=== PATIENT | female | born 1985 | race Caucasian/White ===

== ENCOUNTER → 2017-10-25 08:08 | Outpatient (CLI) | payer MEDICAID ==
[2011-03-19 05:32] VITALS: BMI 34.3
== END | disposition home or self-care (01) ==
LOC: D.NM 08:00
DX: R10.11 Right upper quadrant pain (principal)

== ENCOUNTER 2017-11-29 07:09 | Day surgery (SDC) | payer MEDICAID ==
[~2017-11-29] VITALS: Ht 152.4 cm; Wt 102.5 kg
--- NOTE | ~2017-11-29 | OP ---
PATIENT NAME: POLINA MONTEIRO MEDICAL RECORD: [id number] :87 LOCATION:D.OPS ADMISSION DATE: SURGEON: TULIO URBINA MD DATE OF OPERATION: 11/29/2017 PREOPERATIVE DIAGNOSES: 1. Biliary dyskinesia. 2. Morbid obesity with BMI of 43. 3. Anxiety disorder. POSTOPERATIVE DIAGNOSES: 1. Biliary dyskinesia. 2. Morbid obesity with BMI of 43. 3. Anxiety disorder. PROCEDURE: Laparoscopic cholecystectomy. SURGEON: Tulio Urbina MD REPORT OF PROCEDURE: The patient's abdomen was prepped and draped in sterile fashion. A cutdown was made on the superior aspect of the umbilicus, 0 Vicryls were placed on the fascia bilaterally and the fascia was incised with 15-blade. I then bluntly entered the peritoneal cavity and placed a 12-mm Dione port. Under direct visualization, a 5-mm trocar was placed in the epigastrium and 2 more 5-mm trocars were placed in the right subcostal region. The gallbladder was grasped and elevated. The cystic artery and cystic duct were dissected free, and these were clipped proximally and distally and ligated in standard fashion. The gallbladder was then taken off the liver bed using electrocautery and placed into the right upper quadrant. Any bleeding from the liver bed was then treated with electrocautery. At this point, the ports and insufflation were then removed, and the gallbladder was taken out through the umbilicus. The umbilical fascia was closed with interrupted 0 Vicryls times 3. Wounds were then irrigated out with normal saline, infused with 10 mL of 0.25% Marcaine with epinephrine. The skin incisions were all closed with subcutaneous 5-0 Monocryl and dressed appropriately. COMPLICATIONS: None. CONDITION: Stable. ANESTHESIA: General endotracheal and local. BLOOD LOSS: Minimal. TRANSINT:[id number] Voice Confirmation ID: [id number] DOCUMENT ID: [id number] TULIO URBINA MD at 1441 CC: MANJINDER STYLES [id number] DICTATION DATE: 11/29/17 1225 BLOWER INSTALLER: 11/29/17 1254 [facility] 11/29/17 [place] [address]
[~2017-11-29 07:09] MED LIST: ZANTAC300 MG PO
[2017-11-29 07:54] LABS: HEMATOCRIT 38.8 % (36.0-48.0); HEMOGLOBIN 12.3 g/dL (12-16); MCH 27.2 pg (26.0-34.0); MCHC 31.7 g/dL (31.0-37.0); MCV 85.7 fL (80.0-100.0); MEAN PLATELET VOLUME 10.3 fL (7.4-10.4); RBC 4.53 10x6/uL (4.00-5.40); RDW 13.9 % (11.5-14.5); WBC 6.5 10x3/uL (4.8-10.8)
[2017-11-29 08:35] VITALS: BP 109/64; Ht 152.4 cm; Wt 102.5 kg
[2017-11-29] MEDS ORDERED: NORCO 10-325 TA1 TAB PO (12:22)
== END 2017-11-29 14:03 | disposition home or self-care (01) ==
LOC: D.OPS 07:09 → D.PAN 08:00 → D.OPS 09:00
PROVIDERS: Anesthesiology
DX: K82.8 Other specified diseases of gallbladder (principal); K82.4 Cholesterolosis of gallbladder; E66.01 Morbid (severe) obesity due to excess calories; Z68.41 Body mass index [BMI] 40.0-44.9, adult; F41.9 Anxiety disorder, unspecified; Z01.812 Encounter for preprocedural laboratory examination